=== PATIENT | male | born 1980 | race American Indian/Alaskan Native ===

== ENCOUNTER 2017-02-06 19:19 | Emergency (ER) | payer MEDICAID ==
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
[2017-02-06 19:57] VITALS: BP 130/70
== END 2017-02-06 19:56 | disposition home or self-care (01) ==
LOC: MW.ED 19:19
DX: L03.211 Cellulitis of face (principal); Z79.899 Other long term (current) drug therapy; F17.210 Nicotine dependence, cigarettes, uncomplicated; Z77.098 Contact with and (suspected) exposure to other hazardous, chiefly nonmedicinal, chemicals
CPT/HCPCS: 99282; 99283